=== PATIENT | male | born 1970 | race Two or more races ===

== ENCOUNTER 2023-10-08 13:56 | Inpatient (IN) | payer OTHER ==
[~2023-10-08] VITALS: Ht 182.9 cm; Wt 89.4 kg
[2023-10-08] MEDS ORDERED: ALBU18HF2 IH (14:34)
[2023-10-08] MEDS ORDERED: DULO20CA PO (14:34)
[2023-10-08] MEDS ORDERED: ASCO-352 PO (14:34)
[2023-10-08] MEDS ORDERED: ASPI-1169 PO (14:34)
[2023-10-08] MEDS ORDERED: DOCU-141 PO (14:34)
[2023-10-08] MEDS ORDERED: GLIP5TAB13 PO (14:34)
[2023-10-08] MEDS ORDERED: MULT-447 PO (14:34)
[2023-10-08] MEDS ORDERED: LORA-259 PO (14:34)
[2023-10-08] MEDS ORDERED: MELA3TAB41 PO (14:34)
[2023-10-08] MEDS ORDERED: MAGN400O6 PO (14:34)
[2023-10-08] MEDS ORDERED: TRAM50TA2 PO (14:34)
[2023-10-08] MEDS ORDERED: NA P133E RC (14:34)
[2023-10-08] MEDS ORDERED: CYAN-51 PO (14:34)
[2023-10-08] MEDS ORDERED: ATOR40TA PO (14:34)
[2023-10-08] MEDS ORDERED: AMIN30LI2 PO (14:34)
[2023-10-08] MEDS ORDERED: ACET-868 PO (14:34)
[2023-10-08] MEDS ORDERED: TAMS-12 PO (14:34)
[2023-10-08] MEDS ORDERED: LISI40TA13 PO (14:34)
[2023-10-08] MEDS ORDERED: BISA10SU11 RC (14:34)
[2023-10-08] MEDS ORDERED: INSU100V7 SQ (14:34)
[2023-10-08] MEDS ORDERED: ACET-2605 PO (14:34)
[2023-10-08] MEDS ORDERED: FLUT1BLS12 IH (14:34)
[2023-10-08] MEDS ORDERED: AMLO-212 PO (14:34)
[2023-10-08] MEDS ORDERED: QUET50TA PO (14:34)
[2023-10-08] MEDS ORDERED: LINA5TAB PO (14:34)
[2023-10-08 14:47] LABS: CALCIUM, SERUM 8.3 mg/dL (8.5-10.1); CREATININE 2.1 mg/dL (0.6-1.3)
[2023-10-08 14:49] LABS: POTASSIUM 6.4 mmol/L (3.5-5.1)
[2023-10-08 14:54] LABS: ALBUMIN 2.7 g/dL (3.4-5.0); BILIRUBIN,DIRECT 0.2 mg/dL (0.0-0.2); BILIRUBIN,TOTAL 0.3 mg/dL (0.2-1.0); TOTAL PROTEIN, SERUM 6.7 g/dL (6.4-8.2)
[2023-10-08 15:00] LABS: BASOPHILS % (AUTO) 0.6 % (0.0-2.0); EOSINOPHILS # (AUTO) 0.3 K/uL (0.0-0.7); EOSINOPHILS % (AUTO) 4.9 % (0.0-6.0); HEMATOCRIT 30 % (39-51); HEMOGLOBIN 9.9 g/dL (13.5-17.5); LYMPHOCYTES # (AUTO) 0.9 K/uL (0.8-4.8); LYMPHOCYTES % (AUTO) 15.9 % (20.0-44.0); MEAN CORPUSCULAR HEMOGLOBIN 28 PG (26.0-33.0); MEAN CORPUSCULAR HGB CONC 33 g/dl (31.0-36.0); MEAN CORPUSCULAR VOLUME 85 fL (80-96); MONOCYTES # (AUTO) 0.6 K/uL (0.1-1.30); MONOCYTES % (AUTO) 10.5 % (2.0-12.0); NEUTROPHILS # (AUTO) 3.8 K/uL (1.8-8.9); NEUTROPHILS % (AUTO) 68.1 % (43.0-81.0); PLATELET COUNT (AUTO) 205 K/uL (150-450); RED BLOOD CELL COUNT(AUTO) 3.49 MIL/uL (4.5-6.0); RED CELL DISTRIBUTION WIDTH 13.9 % (11.5-15.0); WHITE BLOOD COUNT (AUTO) 5.6 K/uL (4.3-11.0)
[2023-10-08] MEDS ORDERED: INSULIN REGULAR, HUMAN 100 UNIT/ML 10 ML VIAL ONE (15:14)
[2023-10-08] MEDS ORDERED: SODIUM BICARBONATE SYR 50 MEQ/50 ML DISP.SYRIN ONE (15:14)
[2023-10-08] MEDS ORDERED: DEXTROSE 50%-WATER 50 ML DISP.SYRIN ONE ×3 (15:14→15:40)
[2023-10-08] MEDS: DEXTROSE 50%-WATER 50 ML DISP.SYRIN IV ONE ×2 (15:28)
[2023-10-08] MEDS: INSULIN REGULAR, HUMAN 100 UNIT/ML 10 ML VIAL IV ONE (15:31)
[2023-10-08] MEDS: SODIUM BICARBONATE SYR 50 MEQ/50 ML DISP.SYRIN IV ONE (15:38)
[2023-10-08] MEDS: SODIUM POLYSTYRENE SULFONATE 15 G/60 ML BOTTLE PO ONE ×2 (15:38→23:44)
[2023-10-08] MEDS: ALBUTEROL FS 2.5 MG/3 ML VIAL.NEB NEB ONE (15:46)
[2023-10-08] MEDS ORDERED: ALBUTEROL FS 2.5 MG/3 ML VIAL.NEB ONE (15:48)
[2023-10-08 15:49] VITALS: O2SAT 99
[2023-10-08 16:00] VITALS: O2SAT 99
[2023-10-08 17:16] LABS: APPEARANCE,URINE CLEAR (CLEAR); BILIRUBIN,URINE NEGATIVE (NEGATIVE); BLOOD, URINE NEGATIVE Ery/uL (NEGATIVE); COLOR,URINE YELLOW (YELLOW); KETONES,URINE NEGATIVE (NEGATIVE); LEUKOCYTE ESTERASE ,URINE TRACE (NEGATIVE); NITRITE, URINE NEGATIVE (NEGATIVE); PROTEIN,URINE 1+ mg/dl (NEGATIVE); UGLUCOSE NEGATIVE (NEGATIVE); UROBILINOGEN,URINE 0.2 EU/dL (0.2)
[2023-10-08 17:48] LABS: ADD URINE CULTURE NO; BACTERIA,URINE RARE /HPF (None Seen); RBC,URINE 0-2 /HPF (0-2); SQUAMOUS EPITHELIAL CELL,UR 0-2 /HPF (None Seen)
[2023-10-08 18:06] VITALS: O2SAT 97
[2023-10-08] MEDS ORDERED: ALBUTEROL SULFATE 8 GM HFA.AER.AD IH PRN (20:30)
[2023-10-08] MEDS ORDERED: LORAZEPAM 1 MG TABLET PO PRN (20:30)
[2023-10-08] MEDS ORDERED: Z GUARD REMEDY 4 OZ OINT TP PRN (20:30)
[2023-10-08] MEDS ORDERED: TRAMADOL HCL 50 MG TABLET PO PRN (20:30)
[2023-10-08] MEDS ORDERED: ONDANSETRON HCL/PF 4 MG/2 ML VIAL IVP PRN (20:30)
[2023-10-08] MEDS ORDERED: ACETAMINOPHEN 325 MG TABLET PO PRN (20:30)
[2023-10-08] MEDS ORDERED: BISACODYL SUPP (10 MG) 10 MG/SUPP.RECT SUPP.RECT RC PRN (20:30)
[2023-10-08] MEDS: FLUTICASONE/SALMETEROL 1 DISK IH SCH (21:00)
[2023-10-08 21:03] LABS: CALCIUM, SERUM 8.2 mg/dL (8.5-10.1); CREATININE 2.1 mg/dL (0.6-1.3); POTASSIUM 6.1 mmol/L (3.5-5.1)
[2023-10-08 21:25] VITALS: BP 130/73; TEMP 97.9; O2SAT 98
[2023-10-08] MEDS ORDERED: FUROSEMIDE 20 MG/2 ML VIAL IV SCH (22:30)
[2023-10-08] MEDS: ATORVASTATIN 40 MG TABLET PO SCH (23:44)
[2023-10-08] MEDS: HEPARIN SODIUM, PORCINE 5000 UNITS/1 ML VIAL SQ SCH (23:45)
[2023-10-09] VITALS: BP 108/70; TEMP 97.8; O2SAT 98
[2023-10-09 05:01] VITALS: BP 108/57; TEMP 98.1; O2SAT 98
[2023-10-09 07:30] VITALS: BP 126/76; TEMP 97.8; O2SAT 98
[2023-10-09] MEDS: PANTOPRAZOLE 40 MG TABLET.DR PO SCH (07:49)
[2023-10-09 07:56] LABS: EOSINOPHILS # (AUTO) 0.2 K/uL (0.0-0.7); EOSINOPHILS % (AUTO) 4.9 % (0.0-6.0); HEMATOCRIT 31 % (39-51); HEMOGLOBIN 10.3 g/dL (13.5-17.5); LYMPHOCYTES # (AUTO) 0.6 K/uL (0.8-4.8); LYMPHOCYTES % (AUTO) 12.8 % (20.0-44.0); MEAN CORPUSCULAR HEMOGLOBIN 29 PG (26.0-33.0); MEAN CORPUSCULAR HGB CONC 33 g/dl (31.0-36.0); MEAN CORPUSCULAR VOLUME 86 fL (80-96); MONOCYTES # (AUTO) 0.5 K/uL (0.1-1.30); MONOCYTES % (AUTO) 10.5 % (2.0-12.0); NEUTROPHILS # (AUTO) 3.6 K/uL (1.8-8.9); NEUTROPHILS % (AUTO) 70.8 % (43.0-81.0); PLATELET COUNT (AUTO) 222 K/uL (150-450); RED BLOOD CELL COUNT(AUTO) 3.61 MIL/uL (4.5-6.0); RED CELL DISTRIBUTION WIDTH 14.3 % (11.5-15.0)
[2023-10-09] MEDS ORDERED: ALBUTEROL FS 2.5 MG/0.5 ML VIAL.NEB NEB PRN (08:00)
[2023-10-09] MEDS: MULTIVIT W/MINERALS 1 TAB TABLET PO SCH (08:37)
[2023-10-09 08:38] VITALS: BP 126/76
[2023-10-09] MEDS: QUETIAPINE FUMARATE 25 MG TABLET PO SCH (08:38)
[2023-10-09] MEDS: DULOXETINE HCL 20 MG CAPSULE.DR PO SCH (08:38)
[2023-10-09] MEDS: LINAGLIPTIN 5 MG TABLET PO SCH (08:38)
[2023-10-09] MEDS: CYANOCOBALAMIN 500 MCG TABLET PO SCH (08:38)
[2023-10-09] MEDS: ASPIRIN 81 MG TAB.CHEW PO SCH (08:38)
[2023-10-09] MEDS: AMLODIPINE BESYLATE 5 MG TABLET PO SCH (08:38)
[2023-10-09] MEDS: ASCORBIC ACID 500 MG TABLET PO SCH (08:39)
[2023-10-09] MEDS: DOCUSATE SODIUM 100 MG CAPSULE PO SCH (08:39)
[2023-10-09] MEDS: PROSOURCE / PROSTAT (PYXIS) 30 ML UDC PO SCH (08:49)
[2023-10-09] MEDS: FLUTICASONE/VILANTEROL 1 EACH BLST.W.DEV IH SCH (09:00)
[2023-10-09] MEDS: INSULIN GLARGINE, 100 UNIT/ML CARTRIDGE SQ SCH (09:00)
[2023-10-09 09:35] LABS: CALCIUM, SERUM 8.5 mg/dL (8.5-10.1); CREATININE 1.7 mg/dL (0.6-1.3); MAGNESIUM 2.4 mg/dL (1.8-2.4); PHOSPHORUS 4.9 mg/dL (2.5-4.9); POTASSIUM 5.4 mmol/L (3.5-5.1)
[2023-10-09] MEDS: SODIUM POLYSTYRENE SULFONATE 15 G/60 ML BOTTLE PO ONE ×2 (15:54→16:06)
[2023-10-09] MEDS ORDERED: FUROSEMIDE 20 MG TABLET PO SCH (16:30)
[2023-10-09] MEDS: TAMSULOSIN 0.4 MG CAP.SR.24H PO SCH (17:14)
[2023-10-10 12:42] LABS: CALCIUM, SERUM 7.7 mg/dL (8.5-10.1); CREATININE 1.6 mg/dL (0.6-1.3); POTASSIUM 4.5 mmol/L (3.5-5.1)
== END 2023-10-10 18:18 | DRG 422 ==
LOC: ER 14:03 → TELE 20:48 → MED 10-09 13:42
PROVIDERS: ADMIT Nurse Practitioner Family; ATTEND Nurse Practitioner Family
DX: E87.5 Hyperkalemia (principal); E86.9 Volume depletion, unspecified; N17.9 Acute kidney failure, unspecified; E44.0 Moderate protein-calorie malnutrition; E11.22 Type 2 diabetes mellitus with diabetic chronic kidney disease; E11.40 Type 2 diabetes mellitus with diabetic neuropathy, unspecified; E88.09 Other disorders of plasma-protein metabolism, not elsewhere classified; D63.8 Anemia in other chronic diseases classified elsewhere; E78.5 Hyperlipidemia, unspecified; F32.A Depression, unspecified; F39 Unspecified mood [affective] disorder; I12.9 Hypertensive chronic kidney disease with stage 1 through stage 4 chronic kidney disease, or unspecified chronic kidney disease; J44.9 Chronic obstructive pulmonary disease, unspecified; N18.2 Chronic kidney disease, stage 2 (mild); Z91.013 Allergy to seafood; Z79.51 Long term (current) use of inhaled steroids; Z79.84 Long term (current) use of oral hypoglycemic drugs; Z79.4 Long term (current) use of insulin; Z79.82 Long term (current) use of aspirin; Z79.899 Other long term (current) drug therapy; N40.0 Benign prostatic hyperplasia without lower urinary tract symptoms; Z89.512 Acquired absence of left leg below knee; Z87.891 Personal history of nicotine dependence; T44.5X5A Adverse effect of predominantly beta-adrenoreceptor agonists, initial encounter; Y92.129 Unspecified place in nursing home as the place of occurrence of the external cause
CPT/HCPCS: 36415; 71045-TC; 80048-TC; 80076-TC; 81001; 82962-TC; 83735-TC; 84100-TC; 85025-TC; 87081-TC; 87086-TC; A6403; G0378; J1644; J1815; J3490

== ENCOUNTER 2024-08-28 19:10 | Inpatient (IN) | payer OTHER ==
[~2024-08-28] VITALS: Ht 182.9 cm; Wt 105.3 kg
[~2024-08-28 19:10] MED LIST: ACET-2605 PO; ACET-868 PO; ALBU18HF2 IH; AMIN30LI2 PO; AMLO-212 PO; ASCO-352 PO; ASPI-1169 PO; ATOR40TA PO; BISA10SU11 RC; CYAN-51 PO; DOCU-141 PO; DULO20CA PO; FLUT1BLS12 IH; GLIP5TAB13 PO; INSU100V7 SQ; LINA5TAB PO; LORA-259 PO; MAGN400O6 PO; MELA3TAB41 PO; MULT-447 PO; NA P133E RC; QUET50TA PO; TAMS-12 PO; TRAM50TA2 PO
[2024-08-28] MEDS ORDERED: ZINC50TA65 PO (19:55)
[2024-08-28] MEDS ORDERED: PSYL822P20 PO (19:55)
[2024-08-28] MEDS ORDERED: SEMA0.25 SQ (19:55)
[2024-08-28] MEDS ORDERED: OMEG-88 PO (19:55)
[2024-08-28] MEDS ORDERED: HYDR-4303 PO (19:55)
[2024-08-28] MEDS ORDERED: CLON0.1T PO (19:55)
[2024-08-28] MEDS ORDERED: LISI10TA29 PO (19:55)
[2024-08-28] MEDS ORDERED: AMLO-213 PO (19:55)
[2024-08-28] MEDS ORDERED: INSU100V39 SQ ×2 (19:55)
[2024-08-28] MEDS ORDERED: SODI5POW2 PO (19:55)
[2024-08-28 20:21] LABS: BASOPHILS # (AUTO) 0.1 K/uL (0.0-0.2); BASOPHILS % (AUTO) 1.3 % (0.0-2.0); EOSINOPHILS # (AUTO) 0.3 K/uL (0.0-0.7); EOSINOPHILS % (AUTO) 3.4 % (0.0-6.0); HEMATOCRIT 30 % (39-51); LYMPHOCYTES # (AUTO) 0.9 K/uL (0.8-4.8); LYMPHOCYTES % (AUTO) 11.1 % (20.0-44.0); MEAN CORPUSCULAR HEMOGLOBIN 29 PG (26.0-33.0); MEAN CORPUSCULAR HGB CONC 36 g/dl (31.0-36.0); MEAN CORPUSCULAR VOLUME 81 fL (80-96); MONOCYTES # (AUTO) 0.7 K/uL (0.1-1.30); MONOCYTES % (AUTO) 8.6 % (2.0-12.0); NEUTROPHILS % (AUTO) 75.6 % (43.0-81.0); PLATELET COUNT (AUTO) 222 K/uL (150-450); RED BLOOD CELL COUNT(AUTO) 3.75 MIL/uL (4.5-6.0); RED CELL DISTRIBUTION WIDTH 13.4 % (11.5-15.0); WHITE BLOOD COUNT (AUTO) 7.9 K/uL (4.3-11.0)
[2024-08-28 20:30] LABS: CALCIUM, SERUM 7.7 mg/dL (8.5-10.1); CREATININE 2.5 mg/dL (0.6-1.3)
[2024-08-28 20:37] LABS: INR 0.94 (0.91-1.10)
[2024-08-28] MEDS ORDERED: Calcium Gluconate 0.465 MEQ/ML VIAL IV ONE (21:27)
[2024-08-28] MEDS ORDERED: MAG HYDROX/AL HYDROX/SIMETH 30 ML UDC PO PRN (21:30)
[2024-08-28] MEDS ORDERED: DEXTROSE 50%-WATER 50 ML DISP.SYRIN IV PRN (21:30)
[2024-08-28] MEDS ORDERED: ACETAMINOPHEN 325 MG TABLET PO PRN (21:30)
[2024-08-28] MEDS ORDERED: Z GUARD REMEDY 4 OZ OINT TP PRN (21:30)
[2024-08-28] MEDS ORDERED: MAGNESIUM HYDROXIDE 30 ML UDC PO PRN (21:30)
[2024-08-28] MEDS ORDERED: ONDANSETRON HCL/PF 4 MG/2 ML VIAL IVP PRN (21:30)
[2024-08-28] MEDS: Calcium Gluconate 1GM/10ML 4.65 MEQ in IV NS 0.9% 100 ML IV ONE (21:36)
[2024-08-28] MEDS ORDERED: ALBUTEROL SULFATE 8 GM HFA.AER.AD IH PRN (22:00)
[2024-08-28] MEDS ORDERED: TRAMADOL HCL 50 MG TABLET PO PRN (22:00)
[2024-08-28] MEDS ORDERED: HYDROCODONE/APAP 5/325MG TABLET PO PRN (22:00)
[2024-08-28] MEDS ORDERED: Medication Not On Formulary EA (Quetiapine Fumarate (Seroquel) 150 MG) PO SCH (22:00)
[2024-08-28 22:32] VITALS: BP 118/71; TEMP 97.5; O2SAT 96
[2024-08-28] MEDS: IV NS 0.9% 1,000 ML IV ONE (22:52)
[2024-08-28] MEDS: ATORVASTATIN 40 MG TABLET PO SCH (22:53)
[2024-08-28 23:30] VITALS: BP 118/71; TEMP 97.5; O2SAT 96
[2024-08-28] MEDS: BLOOD SUGAR DIAGNOSTIC 1 EACH STRIP IN SCH (23:48)
[2024-08-28] MEDS: INSULIN REGULAR, HUMAN 100 UNIT/ML 3 ML VIAL SQ PRN (23:49)
[2024-08-29 06:54] LABS: BASOPHILS % (AUTO) 0.6 % (0.0-2.0); EOSINOPHILS # (AUTO) 0.3 K/uL (0.0-0.7); EOSINOPHILS % (AUTO) 4.6 % (0.0-6.0); HEMATOCRIT 30 % (39-51); HEMOGLOBIN 10.3 g/dL (13.5-17.5); LYMPHOCYTES # (AUTO) 0.9 K/uL (0.8-4.8); LYMPHOCYTES % (AUTO) 14.2 % (20.0-44.0); MEAN CORPUSCULAR HEMOGLOBIN 28 PG (26.0-33.0); MEAN CORPUSCULAR HGB CONC 35 g/dl (31.0-36.0); MEAN CORPUSCULAR VOLUME 82 fL (80-96); MONOCYTES # (AUTO) 0.7 K/uL (0.1-1.30); MONOCYTES % (AUTO) 10.8 % (2.0-12.0); NEUTROPHILS # (AUTO) 4.3 K/uL (1.8-8.9); NEUTROPHILS % (AUTO) 69.8 % (43.0-81.0); PLATELET COUNT (AUTO) 197 K/uL (150-450); RED BLOOD CELL COUNT(AUTO) 3.65 MIL/uL (4.5-6.0); RED CELL DISTRIBUTION WIDTH 13.6 % (11.5-15.0); WHITE BLOOD COUNT (AUTO) 6.2 K/uL (4.3-11.0)
[2024-08-29 06:57] LABS: CREATININE 2.1 mg/dL (0.6-1.3); PHOSPHORUS 4.1 mg/dL (2.5-4.9); POTASSIUM 4.5 mmol/L (3.5-5.1)
[2024-08-29] MEDS ORDERED: ALBUTEROL FS 2.5 MG/0.5 ML VIAL.NEB NEB PRN (07:30)
[2024-08-29 08:00] VITALS: BP 149/85; TEMP 98.1; O2SAT 99
[2024-08-29] MEDS: ASPIRIN 81 MG TAB.CHEW PO SCH (08:04)
[2024-08-29] MEDS: PSYLLIUM SEED 1 PKT PACKET PO SCH (08:04)
[2024-08-29] MEDS: ASCORBIC ACID 500 MG TABLET PO SCH (08:04)
[2024-08-29] MEDS: MULTIVIT W/MINERALS 1 TAB TABLET PO SCH (08:04)
[2024-08-29] MEDS: PANTOPRAZOLE 40 MG VIAL IV SCH (08:04)
[2024-08-29] MEDS: DULOXETINE HCL 20 MG CAPSULE.DR PO SCH (08:04)
[2024-08-29] MEDS: FLUTICASONE/VILANTEROL 1 EACH BLST.W.DEV IH SCH (08:08)
[2024-08-29] MEDS: AMLODIPINE BESYLATE 10 MG TABLET PO SCH (08:12)
[2024-08-29] MEDS: ZINC SULFATE 220 MG CAPSULE PO SCH (08:17)
[2024-08-29] MEDS ORDERED: DHA PO SCH (09:00)
[2024-08-29] MEDS ORDERED: FISH OIL PO SCH (09:00)
[2024-08-29] MEDS ORDERED: Medication Not On Formulary EA (Multivitamin With Minerals (One Daily Complete) 1 EACH) PO SCH (09:00)
[2024-08-29] MEDS ORDERED: EPA PO SCH (09:00)
[2024-08-29] MEDS ORDERED: [UNRECOGNIZED DRUG - OTHER] PO SCH (09:00)
[2024-08-29] MEDS ORDERED: [UNRECOGNIZED DRUG - REMARK] PO SCH (09:00)
[2024-08-29] MEDS ORDERED: OMEGA PO SCH (09:00)
[2024-08-29] MEDS: ALPRAZOLAM 0.25 MG TABLET PO ONE (10:45)
[2024-08-29] MEDS: LORAZEPAM 0.5 MG TABLET PO ONE (11:36)
[2024-08-29 16:00] VITALS: BP 153/87; TEMP 97.9; O2SAT 98
[2024-08-29] MEDS: TAMSULOSIN 0.4 MG CAP.SR.24H PO SCH (17:02)
[2024-08-29 20:00] VITALS: BP 153/88; TEMP 98.1; O2SAT 97
[2024-08-29] MEDS: QUETIAPINE FUMARATE 100 MG TABLET PO SCH (21:31)
[2024-08-30 07:10] LABS: BASOPHILS % (AUTO) 0.5 % (0.0-2.0); EOSINOPHILS # (AUTO) 0.2 K/uL (0.0-0.7); EOSINOPHILS % (AUTO) 3.8 % (0.0-6.0); HEMATOCRIT 29 % (39-51); HEMOGLOBIN 10.1 g/dL (13.5-17.5); LYMPHOCYTES # (AUTO) 0.9 K/uL (0.8-4.8); LYMPHOCYTES % (AUTO) 15.7 % (20.0-44.0); MEAN CORPUSCULAR HEMOGLOBIN 28 PG (26.0-33.0); MEAN CORPUSCULAR HGB CONC 35 g/dl (31.0-36.0); MEAN CORPUSCULAR VOLUME 82 fL (80-96); MONOCYTES # (AUTO) 0.6 K/uL (0.1-1.30); MONOCYTES % (AUTO) 10.4 % (2.0-12.0); NEUTROPHILS # (AUTO) 3.9 K/uL (1.8-8.9); NEUTROPHILS % (AUTO) 69.6 % (43.0-81.0); PLATELET COUNT (AUTO) 206 K/uL (150-450); RED BLOOD CELL COUNT(AUTO) 3.55 MIL/uL (4.5-6.0); RED CELL DISTRIBUTION WIDTH 13.9 % (11.5-15.0); WHITE BLOOD COUNT (AUTO) 5.6 K/uL (4.3-11.0)
[2024-08-30 07:28] LABS: ALBUMIN 2.4 g/dL (3.4-5.0); BILIRUBIN,TOTAL 0.3 mg/dL (0.2-1.0); CALCIUM, SERUM 8.3 mg/dL (8.5-10.1); POTASSIUM 4.4 mmol/L (3.5-5.1); TOTAL PROTEIN, SERUM 5.8 g/dL (6.4-8.2)
[2024-08-30 07:30] VITALS: BP 139/102; TEMP 98.4; O2SAT 95
[2024-08-30 07:51] LABS: APPEARANCE,URINE CLEAR (CLEAR); BILIRUBIN,URINE NEGATIVE (NEGATIVE); BLOOD, URINE TRACE-INTA Ery/uL (NEGATIVE); COLOR,URINE YELLOW (YELLOW); KETONES,URINE NEGATIVE (NEGATIVE); LEUKOCYTE ESTERASE ,URINE 1+ (NEGATIVE); NITRITE, URINE NEGATIVE (NEGATIVE); PH,URINE 6.5 (5.0-8.0); PROTEIN,URINE 2+ mg/dl (NEGATIVE); UGLUCOSE TRACE mg/dL (NEGATIVE); UROBILINOGEN,URINE 0.2 EU/dL (0.2)
[2024-08-30 08:04] LABS: CREATININE, URINE 44.5 MG/DL (30.0-125.0); URINE TOTAL PROTEIN 216.5 mg/dL (0-11.9)
[2024-08-30 08:37] LABS: RBC,URINE 0-2 /HPF (0-2); WBC,URINE 21-50 /HPF (0-3)
[2024-08-30 08:38] LABS: ADD URINE CULTURE YES; BACTERIA,URINE Few /HPF (None Seen)
[2024-08-30] MEDS: PANTOPRAZOLE 40 MG TABLET.DR PO SCH (09:17)
[2024-08-30 10:44] LABS: EOSINOPHIL,URINE None Seen
[2024-08-30] MEDS: CLONIDINE HCL 0.1 MG TABLET PO PRN (16:05)
[2024-08-30 16:40] VITALS: BP 163/83; TEMP 98.4; O2SAT 97
[2024-08-30 20:57] LABS: THYROID STIMULATING HORMONE 1.93 uIU/mL (0.358-3.74)
[2024-08-31 05:10] LABS: PTH, INTACT 8 pg/mL (15-65)
[2024-09-01 07:12] LABS: FOLIC ACID 13.3 ng/mL (>3.0)
== END 2024-08-30 20:10 | DRG 82 ==
LOC: ER 19:18 → MED 22:00
PROVIDERS: ATTEND Nurse Practitioner Acute Care
DX: H49.22 Sixth [abducent] nerve palsy, left eye (principal); N17.9 Acute kidney failure, unspecified; E11.21 Type 2 diabetes mellitus with diabetic nephropathy; E87.1 Hypo-osmolality and hyponatremia; E11.22 Type 2 diabetes mellitus with diabetic chronic kidney disease; D64.9 Anemia, unspecified; Z89.511 Acquired absence of right leg below knee; I12.9 Hypertensive chronic kidney disease with stage 1 through stage 4 chronic kidney disease, or unspecified chronic kidney disease; Z79.4 Long term (current) use of insulin; J44.9 Chronic obstructive pulmonary disease, unspecified; E78.5 Hyperlipidemia, unspecified; F41.9 Anxiety disorder, unspecified; N40.0 Benign prostatic hyperplasia without lower urinary tract symptoms; M89.8X9 Other specified disorders of bone, unspecified site; N18.30 Chronic kidney disease, stage 3 unspecified; Z68.30 Body mass index [BMI] 30.0-30.9, adult; E66.9 Obesity, unspecified; Z91.013 Allergy to seafood; Z79.51 Long term (current) use of inhaled steroids; Z79.01 Long term (current) use of anticoagulants; Z79.84 Long term (current) use of oral hypoglycemic drugs; Z79.82 Long term (current) use of aspirin; Z79.899 Other long term (current) drug therapy; R51.9 Headache, unspecified; F39 Unspecified mood [affective] disorder; F32.A Depression, unspecified; Z91.81 History of falling; Z87.891 Personal history of nicotine dependence
CPT/HCPCS: 36415; 70450-TC; 70544-TC; 70551-TC; 76770-TC; 80048-TC; 80053-TC; 81001; 82550-TC; 82570-TC; 82607-TC; 82962-TC; 83735-TC; 83921; 83970; 84100-TC; 84155; 84165; 84300-TC; 84425; 84443-TC; 85025-TC; 85610-TC; 87081-TC; A4223; G0378; J0612; J1815; J2470; J7030

== ENCOUNTER 2024-12-04 14:21 | Emergency (ER) | payer OTHER ==
[~2024-12-04] VITALS: Ht 182.9 cm; Wt 104.3 kg
[~2024-12-04 14:21] MED LIST changes: -ACET-2605 PO; -AMIN30LI2 PO; -AMLO-212 PO; +AMLO-213 PO; +CLON0.1T PO; -CYAN-51 PO; -DOCU-141 PO; +HYDR-4303 PO; +INSU100V39 SQ; -LINA5TAB PO; +LISI10TA29 PO; -LORA-259 PO; -NA P133E RC; +OMEG-88 PO; +PSYL822P20 PO; +SEMA0.25 SQ; +SODI5POW2 PO; +ZINC50TA65 PO
[2024-12-04] MEDS ORDERED: HYDR25TA4 PO (14:50)
[2024-12-04] MEDS ORDERED: LORA-258 PO (14:50)
[2024-12-04] MEDS ORDERED: CALC-494 PO (14:50)
[2024-12-04] MEDS ORDERED: KETOROLAC TROMETHAMINE 15 MG/ML VIAL ONE (15:23)
[2024-12-04] MEDS ORDERED: LORAZEPAM INJ 2 MG/ML VIAL ONE (15:23)
[2024-12-04 15:29] LABS: PLATELET COUNT (AUTO) 234 K/uL (150-450); RED BLOOD CELL COUNT(AUTO) 3.64 MIL/uL (4.5-6.0); RED CELL DISTRIBUTION WIDTH 13.1 % (11.5-15.0); WHITE BLOOD COUNT (AUTO) 12.7 K/uL (4.3-11.0)
[2024-12-04] MEDS: LORAZEPAM INJ 2 MG/ML VIAL IV ONE (15:29)
[2024-12-04] MEDS: KETOROLAC TROMETHAMINE 15 MG/ML VIAL IV ONE (15:30)
[2024-12-04 15:34] LABS: CALCIUM, SERUM 8.5 mg/dL (8.5-10.1); CREATININE 2.3 mg/dL (0.6-1.3); SODIUM SERUM 138.0 mmol/L (136-145); UREA NITROGEN, BLOOD 27.0 mg/dL (7-18)
[2024-12-04 15:40] LABS: ASPARTATE AMINOTRANSFERASE 23.0 U/L (15-37); TOTAL PROTEIN, SERUM 7.2 g/dL (6.4-8.2)
[2024-12-04 18:51] VITALS: BP 128/85; TEMP 98.9; O2SAT 96
== END 2024-12-04 18:53 ==
LOC: ER 14:25
DX: M54.50 Low back pain, unspecified (principal); M25.512 Pain in left shoulder; M54.2 Cervicalgia; M54.6 Pain in thoracic spine; R07.9 Chest pain, unspecified; R10.9 Unspecified abdominal pain; R51.9 Headache, unspecified; D64.9 Anemia, unspecified; F31.9 Bipolar disorder, unspecified; I12.9 Hypertensive chronic kidney disease with stage 1 through stage 4 chronic kidney disease, or unspecified chronic kidney disease; E11.22 Type 2 diabetes mellitus with diabetic chronic kidney disease; N18.9 Chronic kidney disease, unspecified; J44.9 Chronic obstructive pulmonary disease, unspecified; Z79.899 Other long term (current) drug therapy; Z86.69 Personal history of other diseases of the nervous system and sense organs; Z86.79 Personal history of other diseases of the circulatory system; Z87.09 Personal history of other diseases of the respiratory system; Z87.39 Personal history of other diseases of the musculoskeletal system and connective tissue; Z89.511 Acquired absence of right leg below knee; Z79.82 Long term (current) use of aspirin
CPT/HCPCS: 99285; 72125; 96374; 71045; 96375; 93005; 72131; 72128; 85025; 80048; 80076; 36415; J1885; J2060